=== PATIENT | female | born 1940 | race Hispanic/Latino ===

== ENCOUNTER 2018-07-01 08:11 | Emergency (ER) | payer BC, MEDICARE, OTHER ==
[~2018-07-01] VITALS: Ht 162.6 cm; Wt 90.7 kg
[2018-07-01] MEDS ORDERED: HYDROCODON-ACE1 EA12 PO (09:02)
[2018-07-01] MEDS ORDERED: SIMVASTATIN10 MG PO (09:02)
[2018-07-01] MEDS ORDERED: PRAMIPEXOLE DIHY1 MG PO (09:02)
[2018-07-01] MEDS ORDERED: GABAPENTIN300 MG PO (09:02)
[2018-07-01] MEDS ORDERED: LATANOPROST2.5 ML OP (09:02)
[2018-07-01] MEDS ORDERED: PANTOPRAZOLE SO40 MG PO (09:02)
[2018-07-01] MEDS ORDERED: OXYBUTYNIN CHLOR5 M1 PO (09:02)
[2018-07-01] MEDS ORDERED: LISINOPRIL20 MG PO (09:02)
[2018-07-01] MEDS ORDERED: LEVOTHYROXINE125 MCG PO (09:02)
--- NOTE | 2018-07-01 09:36 | Diagnostic Imaging Report ---
EXAMINATION: CHEST 2 VIEWS INDICATION: Cough. COMPARISON: None FINDINGS: PA and lateral views TUBES and LINES: None. LUNGS: Lungs are well inflated. There are bibasilar atelectasis. Bilateral infrahilar airspace opacities. PLEURA: No pleural effusion or pneumothorax. HEART AND MEDIASTINUM: The cardiomediastinal silhouette is unremarkable. BONES AND SOFT TISSUES: No acute osseous lesion. Soft tissues are unremarkable. UPPER ABDOMEN: No free air under the diaphragm. IMPRESSION: Bilateral infrahilar airspace opacities, likely pneumonia. Signed by: Dr. Bryn Cummings M.D. on 07/01/2018 9:33 AM
[2018-07-01 10:04] VITALS: BP 134/66
== END 2018-07-01 10:14 | disposition home or self-care (01) ==
LOC: ER 08:11
DX: J18.0 Bronchopneumonia, unspecified organism (principal); J02.9 Acute pharyngitis, unspecified; I10 Essential (primary) hypertension; E03.9 Hypothyroidism, unspecified; Z85.3 Personal history of malignant neoplasm of breast
CPT/HCPCS: 71046; 87400; 99283

== ENCOUNTER 2021-06-08 10:36 | Emergency (ER) | payer MEDICARE, OTHER ==
[~2021-06-08] VITALS: Ht 162.6 cm; Wt 90.7 kg
[~2021-06-08 10:36] MED LIST: GABAPENTIN300 MG PO; HYDROCODON-ACE1 EA12 PO; LATANOPROST2.5 ML OP; LEVOTHYROXINE125 MCG PO; LISINOPRIL20 MG PO; OXYBUTYNIN CHLOR5 M1 PO; PANTOPRAZOLE SO40 MG PO; PRAMIPEXOLE DIHY1 MG PO; SIMVASTATIN10 MG PO
[2021-06-08] MEDS ORDERED: HYDROCODONE/APAP 7.5MG-325MG 1 EA TAB PO ONE (11:15)
== END 2021-06-08 15:09 | disposition home or self-care (01) ==
LOC: ER 10:41
DX: S00.83XA Contusion of other part of head, initial encounter (principal); S52.125A Nondisplaced fracture of head of left radius, initial encounter for closed fracture; S20.213A Contusion of bilateral front wall of thorax, initial encounter; S80.02XA Contusion of left knee, initial encounter; S80.01XA Contusion of right knee, initial encounter; W01.0XXA Fall on same level from slipping, tripping and stumbling without subsequent striking against object, initial encounter; Y92.89 Other specified places as the place of occurrence of the external cause; I10 Essential (primary) hypertension; E03.9 Hypothyroidism, unspecified; Z85.3 Personal history of malignant neoplasm of breast; Z85.038 Personal history of other malignant neoplasm of large intestine
CPT/HCPCS: 70450; 71111; 72125; 99284

== ENCOUNTER → 2023-08-22 | Day surgery (SDC) | payer MEDICARE ==
[~2023-08-22] MED LIST changes: +DICLOFENAC SOD100 GM TP; +GLYCOPYRROLATE INJ 0.2 MG/ML VIAL ONE; +HYDROCODON-ACE1 EAC9 PO; +LEVOTHYROXINE137 MCG PO; +LIDOCAINE HCL 2% LOCAL INJ 5 ML SDV VIAL INJ ONE; +OMEPRAZOLE40 MG PO; +PROPOFOL IV EMULSION 10 MG/ML 50 ML VIAL IV ONE
[2023-08-22] MEDS: LACTATED RINGER'S 1,000 ML ONE (09:50)
[2023-08-22 12:20] VITALS: BP 119/68; PULSE 68; RESP 16; TEMP 98; O2SAT 98
== END | disposition home or self-care (01) ==
LOC: OR 08:50
PROVIDERS: ATTEND Internal Medicine Gastroenterology
DX: Z12.11 Encounter for screening for malignant neoplasm of colon (principal); Z85.038 Personal history of other malignant neoplasm of large intestine; D12.8 Benign neoplasm of rectum; A63.0 Anogenital (venereal) warts; K62.89 Other specified diseases of anus and rectum; R15.9 Full incontinence of feces; R14.0 Abdominal distension (gaseous); Z90.49 Acquired absence of other specified parts of digestive tract; Z98.0 Intestinal bypass and anastomosis status; K21.9 Gastro-esophageal reflux disease without esophagitis; I25.10 Atherosclerotic heart disease of native coronary artery without angina pectoris; I10 Essential (primary) hypertension; E03.9 Hypothyroidism, unspecified; F41.9 Anxiety disorder, unspecified; E66.01 Morbid (severe) obesity due to excess calories; Z01.810 Encounter for preprocedural cardiovascular examination; Z79.899 Other long term (current) drug therapy; Z95.5 Presence of coronary angioplasty implant and graft; Z86.16 Personal history of COVID-19; Z92.21 Personal history of antineoplastic chemotherapy; Z92.3 Personal history of irradiation; Z68.39 Body mass index [BMI] 39.0-39.9, adult
CPT/HCPCS: 45380; 45385; 82378; 93005; J7121; 45384; J2001